=== PATIENT | male | born 1975 | race Caucasian/White ===

== ENCOUNTER → 2023-01-26 09:18 | Outpatient (BNVA) | payer BC, SELFPAY | PROVIDERS: Visit Provider Surgery | DX: Z13.89 Encounter for screening for other disorder (principal) ==

== ENCOUNTER 2023-02-22 10:23 | Outpatient (REF) | payer BC, SELFPAY ==
[2023-02-22 10:28] VITALS: BMI 32.5
[2023-02-22 10:30] VITALS: BP 126/75; PULSE 86; RESP 16; TEMP 35.9; O2SAT 96
[2023-02-22 11:20] VITALS: BP 126/73; PULSE 74; RESP 16; O2SAT 95
--- NOTE | 2023-02-22 11:59 | P.OP_ITS ---
Operative Note Operative Note Date of Service: 02/22/23 Narrative: Preoperative diagnosis: Pilar cyst anterior midline scalp Postoperative diagnosis: Lipoma, possible Pilar cyst Procedure: Excision of mass anterior midline scalp Surgeon: Austin Hua MD Landing Gear Mechanic: None Anesthesia: Sensorcaine 0.5% with epinephrine Indications for procedure: 47-year-old male patient presenting with a soft tissue mass located in the anterior midline scalp suggestive of a Pilar cyst Operative findings: Fatty appearing lesion suggestive of a lipoma Specimen: Lipoma anterior scalp Estimated blood loss: 5 mL Complications: None Procedure details: Patient was brought to the minor surgery suite placed in a supine position. After assuring the site of surgery and confirming informed consent the skin was prepped with Betadine and draped in a sterile fashion. Local was then infiltrated around the lesion. A midline incision was then created with scalpel carried down through subcutaneous tissue up to the palpable lesion. Sharp dissection was then used to dissect the lesion from the surrounding subcutaneous tissue. Findings were suggestive of a lipoma. Hemostasis was assured using light pressure. Skin was then closed using interrupted 3-0 Prolene sutures. Bacitracin was applied. The patient tolerated the procedure well. He was discharged to home in stable condition.
== END 2023-02-22 10:24 | disposition home or self-care (01) ==
LOC: HO.MS 10:23
PROVIDERS: Visit Provider Surgery
PROC: (CPT 11423; principal; 2023-02-22 10:50)
DX: D17.0 Benign lipomatous neoplasm of skin and subcutaneous tissue of head, face and neck (principal)
CPT/HCPCS: 11423; 88304

== ENCOUNTER → 2023-03-06 09:52 | Outpatient (BNVA) | payer BC, SELFPAY | PROVIDERS: Visit Provider Physician Assistant Surgical ==